=== PATIENT | female | born 1975 | race Hispanic/Latino ===

== ENCOUNTER 2017-12-22 16:26 | Emergency (ER) | payer BC ==
[2017-12-22 16:40] VITALS: BP 139/80
--- NOTE | 2017-12-22 17:26 | Emergency Department Report ---
- General Chief complaint: Skin/Abscess/Foreign Body Stated complaint: MOLE RIGHT FLANK Time Seen by Provider: 12/22/17 17:21 Source: patient Mode of arrival: Ambulatory Limitations: No Limitations - History of Present Illness Initial comments: 42-year-old female past medical history bilateral breast tumor resections presents with complaint of lesion overlying skin on right breast. Patient is awake alert and oriented 3 fully lucid. Denies fever chills nausea vomiting chest pain shortness of breath. States she has had this lesion for over a year and it has grown in size. Rough in texture slightly brown in color. Singular lesion above the right nipple on the right breast skin. About the size of a nickel as per patient. She states she does not have a primary physician and has not seen a diesel tractor operator yet regarding this issue. 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 States she has had this evaluated at urgent care previously and told that she needed to see a diesel tractor operator. Denies any nipple discharge. Denies being a smoker. States she does have a family history of skin cancer. Lesion is not painful as per pt. MD complaint: lesion (right breast) Severity: mild Worsens with: none Context: none - Related Data Allergies Allergy/AdvReac Type Severity Reaction Status Date / Time acetaminophen [From Vicodin] AdvReac Nausea Verified 12/22/17 16:41 codeine AdvReac Nausea Verified 12/22/17 16:41 hydrocodone [From Vicodin] AdvReac Nausea Verified 12/22/17 16:41 Abscess Boil HPI - HPI Chief Complaint: Skin/Abscess/Foreign Body Stated Complaint: MOLE RIGHT FLANK Time Seen by Provider: 12/22/17 17:21 Allergies/Adverse Reactions: Allergies Allergy/AdvReac Type Severity Reaction Status Date / Time acetaminophen [From Vicodin] AdvReac Nausea Verified 12/22/17 16:41 codeine AdvReac Nausea Verified 12/22/17 16:41 hydrocodone [From Vicodin] AdvReac Nausea Verified 12/22/17 16:41 ED Review of Systems ROS: Stated complaint: MOLE RIGHT FLANK Other details as noted in HPI Constitutional: denies: chills, fever Eyes: denies: eye pain, eye discharge, vision change ENT: denies: ear pain, throat pain Respiratory: denies: cough, shortness of breath, wheezing Cardiovascular: denies: chest pain, palpitations Endocrine: no symptoms reported Gastrointestinal: denies: abdominal pain, nausea, diarrhea Genitourinary: denies: urgency, dysuria, discharge Musculoskeletal: denies: back pain, joint swelling, arthralgia Skin: as per HPI, lesions (lesion above the right breast). denies: rash Neurological: denies: headache, weakness, paresthesias Psychiatric: denies: anxiety, depression Hematological/Lymphatic: denies: easy bleeding, easy bruising ED Past Medical Hx - Past Medical History Previous Medical History?: No - Surgical History Past Surgical History?: No - Social History Smoking Status: Never Smoker Substance Use Type: None ED Physical Exam - General Limitations: No Limitations General appearance: alert, in no apparent distress - Head Head exam: Present: atraumatic, normocephalic - Eye Eye exam: Present: normal appearance, PERRL, EOMI - ENT ENT exam: Present: mucous membranes moist - Neck Neck exam: Present: normal inspection - Respiratory Respiratory exam: Present: normal lung sounds bilaterally. Absent: respiratory distress - Cardiovascular Cardiovascular Exam: Present: regular rate, normal rhythm. Absent: systolic murmur, diastolic murmur, rubs, gallop - GI/Abdominal GI/Abdominal exam: Present: soft, normal bowel sounds - Extremities Exam Extremities exam: Present: normal inspection - Back Exam Back exam: Present: normal inspection - Neurological Exam Neurological exam: Present: alert, oriented X3, CN II-XII intact, normal gait - Psychiatric Psychiatric exam: Present: normal affect, normal mood - Skin Skin exam: Present: warm, dry, intact, normal color. Absent: rash - Expanded Skin Exam Expanded 1 - seborreic keratosis like lesion here, 1-2 cm ED Course Vital Signs 12/22/17 16:37 Temperature 97.7 F Pulse Rate 70 Respiratory 16 Rate Blood Pressure 139/80 O2 Sat by Pulse 98 Oximetry ED Medical Decision Making - Medical Decision Making A/P: Skin lesion on right breast, likely seborrheic keratosis 1-I advised patient that she needs to follow-up with a diesel tractor operator. On clinical exam lesion is most consistent with appearance of seborrheic keratosis. I advised patient that it is important for her to obtain a biopsy of this lesion to rule out any malignancy. Patient stated she understood and would take time on her own to acquire a dermatology consult. Patient states she is not interested and local dermatology consultation because she is constantly driving domestically from state to [facility] as a pick up truck driver will not be in the [place] area in the foreseeable future. 2-I informed Dr. Agosto of my encounter with this patient 3- patient eloped before receiving discharge paperwork. Critical care attestation.: If time is entered above; I have spent that time in minutes in the direct care of this critically ill patient, excluding procedure time. ED Disposition Clinical Impression: Skin lesion of breast Disposition: Z- ELOPED Is pt being admited?: No Does the pt Need Aspirin: No Condition: Stable Referrals: PRIMARY CAREMD [Primary Care Provider] - 3-5 Days LOULOU SOTELO MD [Staff Physician] - 3-5 Days Time of Disposition: 17:27
== END 2017-12-22 17:36 | disposition left against medical advice (07) ==
LOC: ED 16:26
DX: N63.0 Unspecified lump in unspecified breast (principal); Z88.6 Allergy status to analgesic agent
CPT/HCPCS: 99281